=== PATIENT | male | born 1940 | race Asian ===

== ENCOUNTER 2022-11-13 10:05 | Emergency (ER) | payer OTHER ==
[~2022-11-13] VITALS: Ht 165.1 cm; Wt 56.7 kg
[2022-11-13 10:21] VITALS: BP_SYST 152; PULSE 95; RESP 24; TEMP 98.7; O2SAT 97
[2022-11-13] MEDS ORDERED: IPRATROPIUM/ALBUTEROL SULFATE 3 ML AMPUL.NEB (DUONEB) INH ONE (10:30)
[2022-11-13] MEDS ORDERED: CEFEPIME 1 GM in D5W 50 ML IV ONE (10:45)
[2022-11-13 10:48] LABS: BASOPHILS # (AUTO) 0.1 K/uL (0.0-0.2); BASOPHILS % (AUTO) 1.7 % (0.0-2.0); EOSINOPHILS # (AUTO) 0.2 K/uL (0.0-0.4); EOSINOPHILS % (AUTO) 4.6 % (0.0-4.0); HEMATOCRIT 40.3 % (36-54); HEMOGLOBIN 13.3 g/dL (14.0-18.0); LYMPHOCYTES % (AUTO) 19.3 % (20.5-51.5); MEAN CORPUSCULAR HEMOGLOBIN 32 pg (27-31); MEAN CORPUSCULAR HGB CONC 33 % (32-36); MEAN CORPUSCULAR VOLUME 98 fL (79.0-98.0); MONOCYTES # (AUTO) 0.5 K/uL (0.0-1.0); MONOCYTES % (AUTO) 9.8 % (1.7-9.3); NEUTROPHILS # (AUTO) 3.5 K/uL (1.8-7.7); NEUTROPHILS % (AUTO) 64.6 % (40.0-70.0); PLATELET COUNT (AUTO) 154 K/uL (130-430); RED BLOOD CELL COUNT(AUTO) 4.12 MIL/uL (4.2-6.2); RED CELL DISTRIBUTION WIDTH 13.3 % (9.0-15.0); WHITE BLOOD COUNT (AUTO) 5.4 K/uL (4.8-10.8)
[2022-11-13 10:55] LABS: ANION GAP 5 (5-15); CALCIUM 8.8 mg/dL (8.4-11.0); CHLORIDE 97 mmol/L (98-107); CREATININE 0.99 mg/dL (0.55-1.30); GLUCOSE 115 mg/dL (74-106); UREA NITROGEN, BLOOD 11 mg/dL (8-21)
[2022-11-13] MEDS ORDERED: CEFEPIME 1 GM/VIAL (MAXIPIME) ONE (10:59)
[2022-11-13 11:02] LABS: ALANINE AMINOTRANSFERASE 17 U/L (12-78); ALBUMIN 3.7 g/dL (3.4-4.8); ASPARTATE AMINOTRANSFERASE 18 U/L (10-37); TOTAL BILIRUBIN 0.7 mg/dL (0.0-1.0)
[2022-11-13 11:07] LABS: PROTHROMBIN TIME 10.5 SECS (9.5-12.5)
[2022-11-13] MEDS ORDERED: PRED20TA PO (11:59)
[2022-11-13 12:22] VITALS: BP_SYST 120; PULSE 84; RESP 20; TEMP 98.2; O2SAT 98
== END 2022-11-13 12:22 | disposition home or self-care (01) ==
LOC: SED 10:05
DX: J44.9 Chronic obstructive pulmonary disease, unspecified (principal); R06.02 Shortness of breath; R05.9 Cough, unspecified; Z79.899 Other long term (current) drug therapy; Z20.822 Contact with and (suspected) exposure to COVID-19
CPT/HCPCS: 99285; 96365; 71045; 87426; 80053; 83880; 85025; 85610; 85730; 87040; 84484; 36415; 93005; 94640; 83605; 87804 ×2; J0692